=== PATIENT | male | born 1975 | race Hispanic/Latino ===

== ENCOUNTER 2020-09-26 17:58 | Emergency (ER) | payer SELFPAY ==
--- NOTE | 2020-09-26 18:20 | ER ---
Nurse's Notes [facility] Name: Genaro Pierce Age: 45 yrs Sex: Male : 1975 Arrival Date: 09/26/2020 Time: 18:00 Bed Waiting Private MD: Diagnosis: Presentation: 09/26 18:03 Chief complaint: Patient states: L sided CP and L arm tightness for 3-4 days, worsening ll1 each day. No cough or congestion. No fever. Coronavirus screen: Client denies travel out of the [place] in the last 14 days. At this time, the client does not indicate any symptoms associated with coronavirus-19. Ebola Screen: Patient denies travel to an Ebola-affected area in the 21 days before illness onset. Initial Sepsis Screen: Does the patient meet any 2 criteria? No. Patient's initial sepsis screen is negative. Does the patient have a suspected source of infection? No. Patient's initial sepsis screen is negative. Risk Assessment: Do you want to hurt yourself or someone else? Patient reports no desire to harm self or others. Onset of symptoms was September 23, 2020. 18:03 Method Of Arrival: Ambulatory ll1 18:03 Acuity: WINETR 3 ll1 Historical: - Allergies: 18:05 PENICILLINS; ll1 - PMHx: 18:05 testicular CA; Asthma; ll1 - PSHx: 18:05 testicular SX for CA; ll1 - Immunization history:: Client reports having NOT received the Covid vaccine. Flu vaccine is up to date. - Social history:: Smoking status: Patient denies any tobacco usage or history of. Vital Signs: 18:03 BP 129 / 83; Pulse 81; Resp 18; Temp 98.1; Pulse Ox 99% ; Weight 122.47 kg; Height 5 ll1 ft. 10 in. (177.80 cm); Pain 8/10; 18:03 Body Mass Index 38.74 (122.47 kg, 177.80 cm) ll1 ED Course: 18:00 Patient arrived in ED. mr 18:05 Triage completed. ll1 18:05 Arm band placed on. ll1 18:14 EKG completed in triage. Results shown to MD. ll1 Administered Medications: No medications were administered Outcome: 18:20 Patient left the ED. ll1 Signatures: Fe Tejeda mr Yobani, Shabbir, RN RN ll1
[2020-09-26 18:24] VITALS: BP 129/83; TEMP 98.1; O2SAT 99
--- NOTE | 2020-09-27 09:05 | EKG ---
Test Date: 2020-09-26 Test Time: 18:10:55 [employer] Driver: MIGUEL MEASUREMENT RESULTS: Intervals: Rate: 76 MO: 156 QRSD: 84 QT: 364 QTc: 409 [place]: P: 54 MO: 156 QRS: 77 T: 45 INTERPRETIVE STATEMENTS: Normal sinus rhythm Normal ECG No previous ECG available for comparison Electronically Signed On 09-27-20 09:03:57 CDT by Angel Anglin
== END 2020-09-26 18:20 | disposition left against medical advice (07) ==
LOC: ER 17:58
DX: Z53.21 Procedure and treatment not carried out due to patient leaving prior to being seen by health care provider (principal)
CPT/HCPCS: 93005; 99281